=== PATIENT | female | born 1965 | race Caucasian/White ===

== ENCOUNTER 2017-08-11 19:06 | Inpatient (IN) | payer OTHER ==
[~2017-08-11] VITALS: Ht 182.9 cm; Wt 68.0 kg
[~2017-08-11 19:06] MED LIST: ASPI-757 PO; CALC600T63 PO; CHOL100058 PO; IBUP-56 PO; OMEG-96 PO
--- NOTE | 2017-08-11 19:08 | ER Report ---
History and Physical Time Seen By MD: 19:07 HPI/ROS CHIEF COMPLAINT: Slip and fall on ice HISTORY OF PRESENT ILLNESS: 51-year-old female brought in by EMS after slipping and falling on the ice. She landed on her right hip. He is complaining of severe 10/10 pain in her hip. She also did strike her head. She's comparing of head and neck pain. She notes that she passed out from the severe pain that she had when she fell. Patient was brought in by EMS and a pelvic binder and cervical spine precautions. On a spinal board. She was immediately removed from the spinal board. She was undressed. Aviva and 2nd degree surveys were performed. Her mental status is normal. Her primary concern is the right hip. REVIEW OF SYSTEMS: Respiratory: No cough, no dyspnea. Cardiovascular: No chest pain, no palpitations. Gastrointestinal: No vomiting, no abdominal pain. Musculoskeletal: As above Allergies: Coded Allergies: levofloxacin (Verified Allergy, Mild, HEART PALPATATIONS, 12/18/14) Penicillins (Unverified Allergy, Unknown, 12/18/14) childhood nitrofurantoin (Unverified Allergy, Unknown, 12/18/14) Sulfa (Sulfonamide Antibiotics) (Unverified Adverse Reaction, Intermediate , 12/18/14) feels like bugs crawling on skin cephalexin (Unverified Adverse Reaction, Unknown, 12/18/14) palpitations Home Meds Reported Medications Aspirin (ASPIRIN) 325 Mg Tablet, 2 TAB PO Q4-6H Y for PAIN, TAB 10/29/14 Ibuprofen (IBUPROFEN) 200 Mg Tablet, 2 TAB PO Q6H Y for PAIN 10/29/14 Discontinued Reported Medications Cholecalciferol (Vitamin D3) (VITAMIN D) Unknown Strength Capsule, PO, CAPSULE 10/29/14 Calcium Carbonate (CALCIUM) Unknown Strength Tablet, PO 10/29/14 Past Medical/Surgical History Past Medical History Cardiovascular: Reports hx of: other CV history (has AV node re-entry syndrome - ) Gastrointestinal: Reports hx of: GERD (with fosamax and boniva) Genitourinary: Reports hx of: urinary tract infection Musculoskeletal: Reports hx of: osteoarthritis osteopenia Past Surgical History HEENT: Reports hx of: tonsillectomy (1967) Integumentary: Reports hx of: benign lesion removal Reviewed Nurses Notes: Yes Old Medical Records Reviewed: Yes Smoking Status: Never Smoker Constitutional Vital Sign - Last 24 Hours 08/11/17 08/11/17 08/11/17 08/11/17 19:18 19:21 19:36 19:51 Pulse 59 53 55 Resp 14 20 11 B/P (MAP) 113/77 (89) Pulse Ox 97 97 96 08/11/17 08/11/17 08/11/17 08/11/17 19:53 19:54 20:06 20:21 Pulse 65 ? Resp 16 B/P (MAP) 113/77 128/73 (91) Pulse Ox 95 O2 Delivery Room Air 08/11/17 20:22 B/P (MAP) 131/78 (95) Physical Exam General Appearance: The patient is alert, has no immediate need for airway protection and no current signs of toxicity. Palpation of the head and neck reveal no tenderness or trauma HEENT: Pupils equal and round no injection. Oropharynx without dental trauma Respiratory: Chest is non tender, lungs are clear to auscultation. No chest wall tenderness Cardiac: regular rate and rhythm Gastrointestinal: Abdomen is soft and non tender, no masses, bowel sounds normal. Musculoskeletal: Neck: Neck is supple and non tender. Extremities have full range of motion and are non tender. There is tenderness over the right trochanteric area. Skin: No rashes or lesions. DIFFERENTIAL DIAGNOSIS: After history and physical exam differential diagnosis was considered for fall in the elderly including but not limited to intracranial injury, long bone and pelvic bone fracture, spinal injury, and intrathoracic injury. Medical Decision Making Data Points Result Diagram: 08/11/17204908/11/172049 EKG/Imaging EKG Interpretation 12 lead EK Rhythm: Sinus bradycardia Snelling: normal QRS: normal ST segments: normal, no evidence of ischemia or dysrhythmia Imaging X-ray: Single view portable chest x-ray was obtained. I viewed the images myself on the PACS system. My interpretation of the images is: No infiltrate, no effusion, normal mediastinum. The radiologist interpretation had no clinically significant variation from this interpretation. X-ray: Right hip 3 views was obtained. I viewed the images myself on the PACS system. My interpretation of the images is: Surgical neck fracture, pelvis intact, pelvic ring is intact. The radiologist interpretation had no clinically significant variation from this interpretation. Results: CT scan of the head and cervical spine without contrast was obtained. The results of the study are no acute traumatic findings are noted. See reports. The study was read by the radiologist. I viewed the images myself on the PACS system. ED Course/Re-evaluation Clinical Indication for ER IV: Hydration, IV Access ED Course Patient was admitted to an examination room. H&P was done. The differential diagnoses was considered. On the knuckle examination. Patient was brought in by EMS after a slip and fall on ice. She's complaining of severe right hip pain. Right lower extremity is noted to be neurovascularly intact. Patient also had vasovagal syncope secondary to the severe pain in her right hip. Patient notes mild head impact and neck pain. Patient's medicated with Zofran 4 mg and fentanyl 50 g IV. She is undressed and removed from the spinal board. Diagnostic x-rays are performed. A right hip x-ray shows obvious surgical neck fracture. The pelvis ring is intact. Chest x-ray shows clear lung caraballo, CT of the head and cervical spine were performed which were unremarkable for significant traumatic injury. 08/11/2017 8:08:28 pm case discussed with who accepts the patient for admission to orthopedics. He requested that the hospitalist, Dr. Dhara Watkins contacted. Consult for preop evaluation. Decision to Disposition Date: Aug 11, 2017 Decision to Disposition Time: 20:01 Depart Departure Latest Vital Signs Vital Signs Date Time Temp Pulse Resp B/P (MAP) Pulse Ox O2 Delivery O2 Flow Rate FiO2 08/11/17 20:22 131/78 (95) 08/11/17 20:21 ??? 08/11/17 19:53 16 95 Room Air Impression: Primary Impression: Fall from ground level Additional Impressions: Closed right hip fracture Syncope, vasovagal Condition: Improved Disposition: Admitted from ER Referrals: HARRY LIMON APRN [employer] (PCP) Problem Qualifiers Additional Impressions: Closed right hip fracture Encounter type: initial encounter Qualified Codes: S72.001A - Fracture of unspecified part of neck of right femur, initial encounter for closed fracture CHARY MONTIEL DO Aug 11, 2017 19:08
[2017-08-11] MEDS ORDERED: ONDANSETRON 4 MG/2 ML VIAL IVP ONE (19:10)
[2017-08-11] MEDS ORDERED: NS(*) 0.9% 1000 ML BAG 1,000 ML IV ONE (19:10)
[2017-08-11] MEDS ORDERED: fentaNYL CITR 100 MCG/2 ML AMP IVP ONE (19:10)
[2017-08-11] MEDS ORDERED: HYDROmorphone(ER ONLY) 1 MG/ML IVP ONE ×2 (19:45→20:45)
--- NOTE | 2017-08-11 20:00 | RADIOLOGY IMAGING REPORT ---
FACILITY: [facility] PATIENT NAME: Darlene Miller : 1965 MR: [id number] V: [id number] EXAM DATE: ORDERING PHYSICIAN: CHARY MONTIEL TECHNOLOGIST: Location: [facility] Patient: Darlene Miller : 1965 Visit/Account:[id number] Date of Sevice: 08/11/2017 Single view of the chest Indication: Fall on ice. Comparison: None available Findings: Heart size within normal limits. Lungs are clear. No pneumothorax or pleural effusion. No acute bony finding IMPRESSION: 1. No acute cardiopulmonary process. Report Dictated By: Arsalan Fischer MD at 08/11/2017 7:56 PM Report E-Signed By: Arsalan Fischer MD at 08/11/2017 7:57 PM WSN:[id number]
--- NOTE | 2017-08-11 20:01 | RADIOLOGY IMAGING REPORT ---
FACILITY: [facility] PATIENT NAME: Darlene Miller : 1965 MR: [id number] V: [id number] EXAM DATE: ORDERING PHYSICIAN: CHARY MONTIEL TECHNOLOGIST: Location: [facility] [place] Patient: Darlene Miller : 1965 Visit/Account:[id number] Date of Sevice: 08/11/2017 HIP RIGHT Indication: Fall on ice Comparison: None available Findings: There is a mildly displaced subcapital right femoral neck fracture. The remainder the neck is superio rly migrated with varus angulation. IMPRESSION: 1. Displaced subcapital right femoral neck fracture Report Dictated By: Arsalan Fischer MD at 08/11/2017 7:57 PM Report E-Signed By: Arsalan Fischer MD at 08/11/2017 7:58 PM WSN:[id number]
--- NOTE | 2017-08-11 20:44 | RADIOLOGY IMAGING REPORT ---
FACILITY: [facility] [place] PATIENT NAME: Darlene Miller : 1965 MR: [id number] V: [id number] EXAM DATE: ORDERING PHYSICIAN: CHARY MONTIEL TECHNOLOGIST: Location: [facility] Patient: Darlene Miller : 1965 Visit/Account:[id number] Date of Sevice: 08/11/2017 EXAMINATION: CT head without IV contrast HISTORY: Fall. TECHNIQUE: Axial CT images of the head were obtained from the vertex to the skull base without IV c ontrast, with coronal and sagittal 2D reconstructed images. One of the following dose optimization techniques was utilized in the performance of this exam: Autom ated exposure control; adjustment of the mA and/or kV according to the patient's size; or use of an i terative reconstruction technique. Specific details can be referenced in the facility's radiology C T exam operational policy. COMPARISON: None. FINDINGS: The intracranial contents are unremarkable. No CT evidence of intracranial hemorrhage or mass effect . No midline shift or extra-axial fluid collections. Abrams-white differentiation is maintained. The calvarium is intact. The visualized paranasal sinuses and mastoid air cells are unopacified. IMPRESSION: Unremarkable noncontrast head CT. Report Dictated By: Sebastian Abel MD at 08/11/2017 8:38 PM Report E-Signed By: Sebastian Abel MD at 08/11/2017 8:40 PM WSN:[id number]
--- NOTE | 2017-08-11 20:48 | RADIOLOGY IMAGING REPORT ---
FACILITY: [facility] PATIENT NAME: Darlene Miller : 1965 MR: [id number] V: [id number] EXAM DATE: ORDERING PHYSICIAN: CHARY MONTIEL TECHNOLOGIST: Location: [facility] Patient: Darlene Miller : 1965 Visit/Account:[id number] Date of Sevice: 08/11/2017 EXAMINATION: CT cervical spine without IV contrast HISTORY: Fall. TECHNIQUE: Thin axial CT images of the cervical spine were obtained without IV contrast, with sagit sam and coronal 2D reconstructed images. One of the following dose optimization techniques was utilized in the performance of this exam: Autom ated exposure control; adjustment of the mA and/or kV according to the patient's size; or use of an i terative reconstruction technique. Specific details can be referenced in the facility's radiology C T exam operational policy. COMPARISON: None. FINDINGS: There is loss of the normal cervical lordosis with mild cervical kyphosis centered at C4-C5. Otherwis e normal alignment along the cervical spine. No evidence of acute fracture or subluxation. Vertebral body height is maintained. Mild spondylotic changes in the cervical spine. There is mild disc space narrowing at C5-C6, with end plate osteophyte formation. There is mild right foraminal narrowing at C5-C6 related to uncovertebral spurring. Posterior elements are intact, with normal alignment along the cervical facet joints. The dens is intact. Normal alignment at the craniocervical junction. IMPRESSION: 1. Loss of the cervical lordosis may be positional or related to muscle spasm. 2. No other acute osseous findings along the cervical spine. No evidence of fracture or subluxation. 2. Mild chronic degenerative changes, greatest at C5-C6. Report Dictated By: Sebastian Abel MD at 08/11/2017 8:40 PM Report E-Signed By: Sebastian Abel MD at 08/11/2017 8:43 PM WSN:[id number]
[2017-08-11 20:58] LABS: PLATELET COUNT, AUTOMATED 169 K/uL (150-450)
[2017-08-11 21:08] LABS: INR 1.08
[2017-08-11] MEDS ORDERED: ONDANSETRON 4 MG TAB PO PRN (22:20)
[2017-08-11] MEDS ORDERED: NS(*) 0.9% 1000 ML BAG 1,000 ML IV PRN (22:20)
[2017-08-11] MEDS ORDERED: HYDROmorphone PCA 6 MG/30 ML IV PRN (22:20)
[2017-08-11] MEDS ORDERED: NS(*) 0.9% 1000 ML BAG 1,000 ML ONE (22:41)
--- NOTE | 2017-08-11 22:52 | EKG ---
FACILITY: [facility] [place] PATIENT NAME: RELL MONTEZ : [id number] MR: [id number] V: [id number] EXAM DATE: ORDERING PHYSICIAN: CHARY MONTIEL TECHNOLOGIST: FIGUEROA Test Reason : PRE-OP Blood Pressure : / mmHG Vent. Rate : 055 BPM Atrial Rate : 055 BPM P-R Int : 162 ms QRS Dur : 092 ms QT Int : 480 ms P-R-T Axes : 079 077 072 degrees QTc Int : 459 ms Sinus bradycardia Otherwise normal ECG When compared with ECG of 12-AUG-2016 14:10, No significant change was found Confirmed by KURTIS BROWN ([id number]) on 08/12/2017 6:12:49 AM Referred By: Confirmed By:KURTIS BROWN
[2017-08-11 23:29] VITALS: BP 113/74
[2017-08-12] VITALS (14 sets, daily range): BP systolic 97–122; BP diastolic 58–79; Ht 182.9 cm; Wt 68.0 kg
--- NOTE | 2017-08-12 00:39 | Hospitalist Consultation ---
History of Present Illness Requesting Physician Dr. Burns Reason for Consult Clear for surgery. Chief Complaint Fall, right hip pain. History of Present Illness The patient is a 51 year old female with PMH significant for AV soham reentry tachycardia who presents with right hip pain after a fall on the ice earlier today outside of the movie theater. The patient and her were going in to the theater when she slipped and fell. She was transported to [facility] ER by EMS. In the ER, x-ray showed a displaced subcapital right femoral neck fracture. The patient is generally healthy and takes no chronic medications. She does take aspirin and ibuprofen prn, but has not had a need to take either of these recently. She has a history of SVT and was diagnosed with AV soham re-entry tachycardia. An attempt at ablation was unsuccessful. She does not take medications for this. She uses vagal maneuvers and/or rests which helps. History Problems: (1) AV soham re-entry tachycardia Status: Chronic (2) Hx of wisdom tooth extraction Status: Resolved (3) Hx of tonsillectomy Status: Resolved (4) Lumbar stenosis Status: Chronic (5) Osteopenia Onset Date: 10/29/2014 Status: Chronic (6) History of asthma Status: Chronic (7) Hx: UTI (urinary tract infection) Status: Chronic Home Meds Reported Medications Aspirin (ASPIRIN) 325 Mg Tablet, 2 TAB PO Q4-6H Y for PAIN, TAB 10/29/14 Ibuprofen (IBUPROFEN) 200 Mg Tablet, 2 TAB PO Q6H Y for PAIN 10/29/14 Discontinued Reported Medications Cholecalciferol (Vitamin D3) (VITAMIN D) Unknown Strength Capsule, PO, CAPSULE 10/29/14 Calcium Carbonate (CALCIUM) Unknown Strength Tablet, PO 10/29/14 Allergies: Coded Allergies: levofloxacin (Verified Allergy, Mild, HEART PALPATATIONS, 12/18/14) Penicillins (Unverified Allergy, Unknown, 12/18/14) childhood nitrofurantoin (Unverified Allergy, Unknown, 12/18/14) Sulfa (Sulfonamide Antibiotics) (Unverified Adverse Reaction, Intermediate , 12/18/14) feels like bugs crawling on skin cephalexin (Unverified Adverse Reaction, Unknown, 12/18/14) palpitations Patient History: FH: COPD (chronic obstructive pulmonary disease) MOTHER (Complications of hip surgery), , Age:86 FH: HTN (hypertension) FATHER, , Age:94 FH: breast cancer MOTHER (Complications of hip surgery), , Age:86 FH: diabetes mellitus MOTHER (Complications of hip surgery), , Age:86 FH: heart disease FATHER, , Age:94 FH: prostate cancer FATHER, , Age:94 No pertinent family history BROTHER OR SISTER Other Social/Family Hx The patient is . She has 3 children. Hx Smoking: No Smoking Status: Never Smoker Caffeine Intake: Coffee, Tea Caffeine/Cups Per Day: 3-4 CPD Hx Alcohol Use: Yes Alcohol Use: Occassional Social Drug Use: Never History of IV Drug Use: No Review of Systems All Systems Reviewed/Normal: Yes, Except as Noted Genitourinary: No Dysuria Musculoskeletal: Pain (Current pain, right hip.) Exam Vital Signs Vital Signs Date Time Temp Pulse Resp B/P (MAP) Pulse Ox O2 Delivery O2 Flow Rate FiO2 08/11/17 23:29 97.9 16 113/74 (87) 97 Nasal Cannula 08/11/17 22:30 2.0 08/11/17 21:00 60 General Appearance: Alert, Awake, No Acute Distress, Afebrile Neuro: No Gross deficits Eyes: PERRLA Cardiovascular: Regular Rate and Rhythm Respiratory: Clear to Auscultation GI: Abd Soft and Non-Tender Extremities: Warm, Perfused Integumentary: Other (Abrasion anterior left lower sharma.) Psych: Appropriate Mood & Affect Medical Decision Making Data Points Result Diagram: 08/11/17204908/11/172049 Item Value Date Time Calcium Level 8.3 mg/dl L 08/11/172049 Total Bilirubin 0.3 mg/dl 08/11/172049 Aspartate Amino Transf (AST/SGOT) 30 U/L 08/11/172049 Alanine Aminotransferase (ALT/SGPT) 37 U/L 08/11/172049 Alkaline Phosphatase 73 U/L 08/11/172049 Total Protein 6.2 gm/dl L 08/11/172049 Albumin 3.6 g/dl 08/11/172049 Urine Color Yellow 08/11/172033 Urine Clarity Cloudy 08/11/172033 Urine pH 7.0 pH 08/11/172033 Urine Specific [place] 1.018 08/11/172033 Urine Protein Negative mg/dL 08/11/172033 Urine Glucose (UA) Negative mg/dL 08/11/172033 Urine Ketones Negative mg/dL 08/11/172033 Urine Blood Negative 08/11/172033 Urine Nitrite Positive H 08/11/172033 Urine Bilirubin Negative 08/11/172033 Urine Urobilinogen Negative mg/dL 08/11/172033 Urine Leukocyte Esterase Trace H 08/11/172033 Urine RBC 2 /HPF 08/11/172033 Urine WBC 4 /HPF 08/11/172033 Urine Squamous Epithelial Cells None /LPF 08/11/172033 Urine Amorphous Crystals Few /HPF 08/11/172033 Urine Bacteria Many /HPF H 08/11/172033 Urine Mucus None /HPF 08/11/172033 Prothrombin Time 14.0 seconds 08/11/172049 Prothromb Time International Ratio 1.08 08/11/172049 Activated Partial Thromboplast Time 28 seconds 08/11/172049 Urine culture pending. EKG / Imaging EKG Interpretation FACILITY: [facility] [place] PATIENT NAME: RELL MILLER : [id number] MR: [id number] V: [id number] EXAM DATE: ORDERING PHYSICIAN: CHARY MONTIEL TECHNOLOGIST: DMW Test Reason : PRE-OP Blood Pressure : / mmHG Vent. Rate : 055 BPM Atrial Rate : 055 BPM P-R Int : 162 ms QRS Dur : 092 ms QT Int : 480 ms P-R-T Axes : 079 077 072 degrees QTc Int : 459 ms Sinus bradycardia Otherwise normal ECG When compared with ECG of 12-AUG-2016 14:10, No significant change was found Referred By: Confirmed By: 21 T: / Imaging FACILITY: [facility] [place] PATIENT NAME: Rell Miller : 1965 MR: [id number] V: [id number] EXAM DATE: [id number] ORDERING PHYSICIAN: CHARY MONTIEL [place]CHNOLOG[place]: [place] [facility] [place]ell [place] : 1965 Visit/Account:[id number] Date of Sevice: 08/11/2017 HIP RIGHT Indication: Fall on ice Comparison: None available Findings: There is a mildly displaced subcapital right femoral neck fracture. The remainder the neck is superiorly migrated with varus angulation. IMPRESSION: 1. Displaced subcapital right femoral neck fracture Report Dictated By: Arsalan Fischer MD at 08/11/2017 7:57 PM Report E-Signed By: Arsalan Fischer MD at 08/11/2017 7:58 PM WSN:[id number] FACILITY: [facility] [place] PATIENT NAME: Rell Miller : 1965 MR: [id number] V: [id number] EXAM DATE: ORDERING PHYSICIAN: CHARY MONTIEL TECHNOLOGIST: [place] [facility] [place] Rell [place] : 1965 Visit/Account:[id number] Date of Sevice: 08/11/2017 EXAMINATION: CT head without IV contrast HISTORY: Fall. TECHNIQUE: Axial CT images of the head were obtained from the vertex to the skull base without IV contrast, with coronal and sagittal 2D reconstructed images. One of the following dose optimization techniques was utilized in the performance of this exam: Automated exposure control; adjustment of the mA and/ or kV according to the patient's size; or use of an iterative reconstruction technique. Specific details can be referenced in the facility's radiology CT exam operational policy. COMPARISON: None. FINDINGS: The intracranial contents are unremarkable. No CT evidence of intracranial hemorrhage or mass effect. No midline shift or extra-axial fluid collections. Abrams-white differentiation is maintained. The calvarium is intact. The visualized paranasal sinuses and mastoid air cells are unopacified. IMPRESSION: Unremarkable noncontrast head CT. Report Dictated By: Sebastian Abel MD at 08/11/2017 8:38 PM Report E-Signed By: Sebastian Abel MD at 08/11/2017 8:40 PM WSN:[id number] FAC[place]: [facility] [place] PATIENT NAME: Rell Miller : 1965 MR: [id number] V: [id number] EXAM DATE: [id number] ORDERING PHYSICIAN: CHARY MONTIEL [place]CHNOLOGIST: [place] [facility] [place] Rell [place] : 1965 Visit/Account:[id number] Date of Sevice: 08/11/2017 Single view of the chest Indication: Fall on ice. Comparison: None available Findings: Heart size within normal limits. Lungs are clear. No pneumothorax or pleural effusion. No acute bony finding IMPRESSION: 1. No acute cardiopulmonary process. Report Dictated By: Arsalan Fischer MD at 08/11/2017 7:56 PM Report E-Signed By: Arsalan Fischer MD at 08/11/2017 7:57 PM WSN:[id number] FACILITY: [facility] [place] PATIENT NAME: Rell Miller : 1965 MR: [id number] V: [id number] EXAM DATE: [id number] ORDERING PHYSICIAN: CHARY MONTIEL [place]CHNOLOG[place]: [place] [facility] [place]ell [place] : 1965 Visit/Account:[id number] Date of Sevice: 08/11/2017 EXAMINATION: CT cervical spine without IV contrast HISTORY: Fall. TECHNIQUE: Thin axial CT images of the cervical spine were obtained without IV contrast, with sagittal and coronal 2D reconstructed images. One of the following dose optimization techniques was utilized in the performance of this exam: Automated exposure control; adjustment of the mA and/ or kV according to the patient's size; or use of an iterative reconstruction technique. Specific details can be referenced in the facility's radiology CT exam operational policy. COMPARISON: None. FINDINGS: There is loss of the normal cervical lordosis with mild cervical kyphosis centered at C4-C5. Otherwise normal alignment along the cervical spine. No evidence of acute fracture or subluxation. Vertebral body height is maintained. Mild spondylotic changes in the cervical spine. There is mild disc space narrowing at C5-C6, with endplate osteophyte formation. There is mild right foraminal narrowing at C5-C6 related to uncovertebral spurring. Posterior elements are intact, with normal alignment along the cervical facet joints. The dens is intact. Normal alignment at the craniocervical junction. IMPRESSION: 1. Loss of the cervical lordosis may be positional or related to muscle spasm. 2. No other acute osseous findings along the cervical spine. No evidence of fracture or subluxation. 2. Mild chronic degenerative changes, greatest at C5-C6. Report Dictated By: Sebastian Abel MD at 08/11/2017 8:40 PM Report E-Signed By: Sebastian Abel MD at 08/11/2017 8:43 PM WSN:[id number] Pre-Admit Course ED Medications Dilaudid, Zofran, Fentanyl, NS Medical Record Review: Yes Assessment and Plan Problems: (1) Closed right hip fracture Status: Acute Assessment & Plan: Dr. Burns has seen the patient and plans to take her to surgery in the am. She is cleared to proceed with surgery. She has been started on Cipro for mild pyuria while awaiting urine culture. 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 She uses vagal maneuvers and rest with good result. (3) Pyuria Status: Acute Assessment & Plan: UA performed on cath specimen shows 4 WBCs with positive leukocyte esterase and positive nitrites. The patient has a history of frequent UTIs in the past. Will start Cipro until culture available. (4) Osteopenia Onset Date: 10/29/2014 Status: Chronic Assessment & Plan: The patient has taken Boniva and Fosamax in the past. Time Spent on Plan of Care: < 30 min Venous Thromboembolism VTE Risk Physician Assess for VTE Risk: Yes Patient's VTE Risk: Low VTE Diagnostic Test 2 Days Prior to Admit: No Antithrombotics Is Pt On Any Antithrombotics?: No Prophylaxis Tx Contraindicated Pharmacological Contraindicati: Surgical Contraindication Exam Sepsis Risk: No Definite Risk Problem Qualifiers (1) Closed right hip fracture: Encounter type: initial encounter Qualified Codes: S72.001A - Fracture of unspecified part of neck of right femur, initial encounter for closed fracture (2) Osteopenia: Osteopenia location: other site Qualified Codes: M85.88 - Other specified disorders of bone density and structure, other site KURTIS SCHROEDER MD Aug 12, 2017 00:39
[2017-08-12] MEDS ORDERED: DIAZEPAM 10 MG/2 ML SYR IVP PRN (01:15)
[2017-08-12 05:56] LABS: PLATELET COUNT, AUTOMATED 166 K/uL (150-450)
[2017-08-12] MEDS ORDERED: DEXAMETHASONE SOD 4 MG/ML VIAL ONE (07:14)
[2017-08-12] MEDS ORDERED: PROPOFOL EMUL(*) 10MG/ML 20 ML 20 ML ONE (07:15)
[2017-08-12] MEDS ORDERED: METOCLOPRAMIDE 10 MG/2 ML SDV ONE (07:15)
[2017-08-12] MEDS ORDERED: fentaNYL CITR 100 MCG/2 ML AMP ONE ×4 (07:15→10:06)
[2017-08-12] MEDS ORDERED: ONDANSETRON 4 MG/2 ML VIAL ONE (07:15)
[2017-08-12] MEDS ORDERED: LIDOCAINE MPF 1% 5 ML VIAL ONE (07:15)
[2017-08-12] MEDS ORDERED: FAMOTIDINE(*) 20MG/50ML PREMIX 50 ML IVPB ONE ×2 (07:20→07:25)
[2017-08-12] MEDS ORDERED: LEVOFLOXACIN/D5W 250 MG/50 ML 50 ML IVPB ONE (07:25)
[2017-08-12] MEDS ORDERED: NORMOSOL R SOLN(*) 1000 ML BAG 1,000 ML IV ONE (07:27)
[2017-08-12] MEDS ORDERED: CIPROFLOXACIN 500 MG TAB PO SCH (07:30)
[2017-08-12] MEDS ORDERED: ROPIVACAINE 0.5% 20 ML VIAL ONE (08:01)
[2017-08-12] MEDS ORDERED: ROPIVACAINE 0.2% 20 ML VIAL ONE (08:01)
[2017-08-12] MEDS ORDERED: MIDAZOLAM 2 MG/2 ML VIAL ONE (08:01)
--- NOTE | 2017-08-12 08:22 | Hospitalist Progress Note ---
Subjective Progress Notes Subjective The patient had several hours of SVT last evening with rate about 120. She was asymptomatic with this. She converted to sinus rhythm at about 0430 this am. Physical Exam Vital Signs Date Time Temp Pulse Resp B/P (MAP) Pulse Ox O2 Delivery O2 Flow Rate FiO2 08/12/17 04:28 84 08/12/17 04:18 97.7 20 109/74 (86) 96 Nasal Cannula 08/11/17 22:30 2.0 General Appearance: Alert, Awake, No Acute Distress, Afebrile Neuro: No Gross deficits Cardiovascular: Regular Rate and Rhythm Respiratory: Clear to Auscultation GI: Soft and Non-Tender Extremities: Warm, Perfused Psych: Appropriate Mood & Affect Result Diagram: 08/12/1753208/11/172049 Assessment and Plan Problems: (1) Closed right hip fracture Status: Acute Assessment & Plan: Dr. Burns has seen the patient and plans to take her to surgery this am. She is cleared to proceed with surgery. She has been started on Levaquin for mild pyuria while awaiting cultures. She does not have a true allergy to Levaquin, it caused palpitations which the patient now believes was unrelated and due to her AV soham reentry tachycardia. 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 She uses vagal maneuvers and rest with good result. She had an episode last evening which has now resolved. HR was about 120 with this. (3) Pyuria Status: Acute Assessment & Plan: UA performed on cath specimen shows 4 WBCs with positive leukocyte esterase and positive nitrites. The patient has a history of frequent UTIs in the past. Levaquin ordered this am as the patient is NPO. (4) Osteopenia Onset Date: 10/29/2014 Status: Chronic Assessment & Plan: The patient has taken Boniva and Fosamax in the past. Time Spent on Plan of Care: < 30 min Exam Sepsis Risk: No Definite Risk Problem Qualifiers (1) Closed right hip fracture: Encounter type: initial encounter Qualified Codes: S72.001A - Fracture of unspecified part of neck of right femur, initial encounter for closed fracture (2) Osteopenia: Osteopenia location: other site Qualified Codes: M85.88 - Other specified disorders of bone density and structure, other site KURTIS SCHROEDER MD Aug 12, 2017 08:22
[2017-08-12] MEDS ORDERED: PHENYLEPHRINE/NS/PF 0.4MG/10ML ONE (08:33)
[2017-08-12] MEDS ORDERED: KETOROLAC 30 MG/ML VIAL IVP PRN (10:10)
[2017-08-12] MEDS ORDERED: ZOLPIDEM TARTRATE 5 MG TAB PO PRN (10:10)
[2017-08-12] MEDS ORDERED: PROMETHAZINE 25 MG/ML 1 ML AMP IVP PRN (10:10)
[2017-08-12] MEDS ORDERED: PROMETHAZINE HCL(*) 25 MG SUPP PR PRN (10:10)
[2017-08-12] MEDS ORDERED: LR 1000 ML BAG 1000 ML IV PRN (10:10)
[2017-08-12] MEDS ORDERED: MAGNESIUM HYDROXIDE* 30ML UDCP PO PRN (10:10)
[2017-08-12] MEDS ORDERED: FLUSH 10 ML SYR IVP PRN (10:10)
[2017-08-12] MEDS ORDERED: diphenhydrAMINE 25 MG CAP PO PRN (10:10)
[2017-08-12] MEDS ORDERED: diphenhydrAMINE 50 MG/ML VIAL IVP PRN (10:10)
[2017-08-12] MEDS ORDERED: ONDANSETRON 4 MG/2 ML VIAL IVP PRN (10:10)
[2017-08-12] MEDS ORDERED: HYDROmorphone HCL 2 MG/ML SDV IVP PRN (10:10)
[2017-08-12] MEDS ORDERED: BISACODYL 10 MG SUPP PR PRN (10:10)
[2017-08-12] MEDS ORDERED: BENZOCAINE/MENTHOL 1 EACH LOZG PO PRN (10:10)
[2017-08-12] MEDS ORDERED: MAGNESIUM CITRATE 300 ML BTL PO PRN (10:10)
--- NOTE | 2017-08-12 11:04 | RADIOLOGY IMAGING REPORT ---
[place] [facility] [place] NAME: Darlene Miller : 1965 MR: [id number] V: [id number] EXAM DATE: ORDERING PHYSICIAN: NIXON BRAXTON TECHNOLOGIST: Location: [facility] Patient: Darlene Miller : 1965 Visit/Account:[id number] Date of Sevice: 08/12/2017 C-ARM FLUORO 1 HR Indication: FRACTURED HIP / CANNULATED SCREW Comparison: Right hip radiograph 08/11/2017 Findings: Intraoperative images are obtained, with cannulated screws identified through the fracture line. Alignment is maintained. IMPRESSION: Intraoperative images from open reduction internal fixation right femoral neck fracture. Radiation dose: DAP 0.03059 mGym2 Report Dictated By: Jatin Conner at 08/12/2017 10:59 AM Report E-Signed By: Jatin Conner at 08/12/2017 11:01 AM WSN:[id number]
--- NOTE | 2017-08-12 14:47 | OPERATIVE REPORT 1 ---
EVENT DATE: August 12, 2017 SURGEON: Keny Burns MD ANESTHESIOLOGIST: Luis F Lozano MD ANESTHESIA: General PREOPERATIVE DIAGNOSIS Right femoral neck fracture, displaced. POSTOPERATIVE DIAGNOSIS Right femoral neck fracture, displaced. PROCEDURE PERFORMED Closed reduction and percutaneous pinning of the right hip. ESTIMATED BLOOD LOSS Minimal. FLUIDS Minimal. DESCRIPTION OF OPERATION The patient was brought to the operating room and placed in a traction bed and had her right leg placed in traction. The left leg was then flexed and externally rotated and abducted. From here, we brought fluoroscopy in and were able to reduce the fracture just with some internal rotation and traction. I checked both on AP and lateral and found to have an excellent reduction. Once that was done, we then prepped and draped the lateral aspect of the right leg. I made an incision just below the greater tuberosity. The skin was incised with a 15 blade down to subcutaneous tissue. At this point, I dissected down to the extensor fascia charles that excised, and then I did a submuscular approach to the bone. Once I was able to get down to the bone, I then placed a pin under fluoroscopy, both with AP and lateral in the inferior-most portion of the neck. Once I had one pin in, I then used that with the guide to place two more pins superiorly above it, trying to get AP and posterior as much as possible with those. Once I had the pins in the appropriate place and the reduction in the appropriate place with the pins there both on AP and lateral, I then drilled all the holes and measured. I placed three 7.3 cannulated screws into the head of the femur and got great compression with all three of them, actually even closed down the fracture site, watching it on the x-ray. I pulled all the pins out. I took AP and lateral again and found to have excellent reduction and good placement of all the hardware. I closed the fascia charles using 2-0 Vicryl in a running stitch manner. I closed the subcutaneous tissues using 3-0 Monocryl and then madeleine, Adaptic, 4 x 4's, and Galindo. The patient went to recovery. No complications. ROMY
[2017-08-12] MEDS ORDERED: ceFAZolin(*) 1 GM VIAL 1 GM in NS(*) 0.9% 100 ML ADDVANT BAG 100 ML IVPB SCH (17:00)
[2017-08-12] MEDS: CLINDAMYCIN 600 MG/4 ML 600 MG in NS(*) 0.9% 100 ML BAG 100 ML IVPB SCH (17:25)
[2017-08-13] MEDS: CLINDAMYCIN 600 MG/4 ML 600 MG in NS(*) 0.9% 100 ML BAG 100 ML IVPB SCH (01:03)
[2017-08-13 05:50] VITALS: BP 95/63
[2017-08-13] MEDS ORDERED: NS(*) 0.9% 500 ML BAG 500 ML IV ONE (08:50)
[2017-08-13] MEDS ORDERED: ENOXAPARIN 40 MG/0.4ML SYR SC SCH (09:00)
[2017-08-13] MEDS: ASPIRIN 325 MG ENTERIC COATED PO SCH (09:27)
[2017-08-13 10:08] VITALS: BP 110/67
[2017-08-13] MEDS ORDERED: LEVOFLOXACIN 500 MG TAB PO SCH (10:20)
--- NOTE | 2017-08-13 10:20 | Hospitalist Progress Note ---
Subjective Progress Notes Subjective She gets light headed with sitting up and her SBP dropped 25mmHg from supine to sitting. No reported cp/sob. Physical Exam Vital Signs Date Time Temp Pulse Resp B/P (MAP) Pulse Ox O2 Delivery O2 Flow Rate FiO2 08/13/17 10:08 97.7 68 110/67 (81) 94 Nasal Cannula 0.5 08/13/17 05:50 14 Intake and Output 08/14/17 07:00 Intake Total 620 ml Balance 620 ml Intake Oral 620 ml General Appearance: Alert, Awake, No Acute Distress Result Diagram: 08/13/17 0551 08/11/172049 Assessment and Plan Problems: (1) Closed right hip fracture Status: Acute Assessment & Plan: She had a hip pinning on 08/12. She will be on ASA 325 mg a day for blood clot prevention. She has been started on Levaquin for mild pyuria while awaiting cultures. She does not have a true allergy to Levaquin, it caused palpitations which the patient now believes was unrelated and due to her AV soham reentry tachycardia. (2) Orthostatic hypotension Status: Acute Assessment & Plan: Secondary to narcotics, and recent anesthesia. No evidence of bleeding. Good UOP. Will give a 500cc fluid boluse. Will check CBC/BMP in the morning. (3) AV soham re-entry tachycardia Status: Chronic Assessment & Plan: The patient is not on chronic treatment. She uses vagal maneuvers and rest with good result. She had an episode the evening of the which has now resolved. HR was about 120 with this. (4) Pyuria Status: Acute Assessment & Plan: UA performed on cath specimen shows 4 WBCs with positive leukocyte esterase and positive nitrites. The patient has a history of frequent UTIs in the past. Levaquin ordered. Culture growing a GNR. (5) Osteopenia Onset Date: 10/29/2014 Status: Chronic Assessment & Plan: The patient has taken Boniva and Fosamax in the past. Exam Sepsis Risk: No Definite Risk Problem Qualifiers (1) Closed right hip fracture: Encounter type: initial encounter Qualified Codes: S72.001A - Fracture of unspecified part of neck of right femur, initial encounter for closed fracture (2) Osteopenia: Osteopenia location: other site Qualified Codes: M85.88 - Other specified disorders of bone density and structure, other site LYNN JACKSON MD Aug 13, 2017 10:20
[2017-08-13 11:32] VITALS: BP 103/63
[2017-08-13 19:12] VITALS: BP 99/64
[2017-08-13 23:07] VITALS: BP 86/71
[2017-08-14 03:28] VITALS: BP 109/64
[2017-08-14 05:53] LABS: PLATELET COUNT, AUTOMATED 134 K/uL (150-450)
[2017-08-14] MEDS ORDERED: ASPI-764 PO (06:20)
--- NOTE | 2017-08-14 06:48 | Hospitalist Progress Note ---
Subjective Progress Notes Subjective No cp/sob. The patient was able to work with therapy after the 500cc bolus yesterday. No problems since. Physical Exam Vital Signs Date Time Temp Pulse Resp B/P (MAP) Pulse Ox O2 Delivery O2 Flow Rate FiO2 08/14/17 03:28 97.9 86 16 109/64 (79) 94 Nasal Cannula 0.5 General Appearance: Alert, Awake, No Acute Distress Result Diagram: 08/14/1752708/14/17527 Assessment and Plan Problems: (1) Closed right hip fracture Status: Acute Assessment & Plan: She had a hip pinning on 08/12. She will be on ASA 325 mg a day for blood clot prevention. She has been started on Levaquin for mild pyuria while awaiting cultures. She does not have a true allergy to Levaquin, it caused palpitations which the patient now believes was unrelated and due to her AV soham reentry tachycardia. (2) Orthostatic hypotension Status: Acute Assessment & Plan: Secondary to narcotics, and recent anesthesia. No evidence of bleeding. Good UOP. BMP/CBC wnl. Resolved after 500cc bolus. (3) AV soham re-entry tachycardia Status: Chronic Assessment & Plan: The patient is not on chronic treatment. She uses vagal maneuvers and rest with good result. She had an episode the evening of the which has now resolved. HR was about 120 with this. (4) Pyuria Status: Acute Assessment & Plan: UA performed on cath specimen shows 4 WBCs with positive leukocyte esterase and positive nitrites. The patient has a history of frequent UTIs in the past. Levaquin ordered. Culture growing a GNR. Today, will be her 3rd dose of Levofloxacin, so will be done with antibiotics if it is sensitive. (5) Osteopenia Onset Date: 10/29/2014 Status: Chronic Assessment & Plan: The patient has taken Boniva and Fosamax in the past. She is to follow up with her PCP about other options. Copies to: HARRY LIMON APRN [employer]-C Exam Sepsis Risk: No Definite Risk Problem Qualifiers (1) Closed right hip fracture: Encounter type: initial encounter Qualified Codes: S72.001A - Fracture of unspecified part of neck of right femur, initial encounter for closed fracture (2) Osteopenia: Osteopenia location: other site Qualified Codes: M85.88 - Other specified disorders of bone density and structure, other site LYNN JACKSON MD Aug 14, 2017 06:48
[2017-08-14 07:46] VITALS: BP 108/61
--- NOTE | 2017-08-14 08:51 | Miscellaneous Provider Note ---
Miscellaneous Provider Note Note Urine culture is growing E. coli which is resistant to quinolones. It is sensitive to cephalosporins. The patient lists an adverse reaction to Keflex ( palpitations), but feels this may be coincidental to an episode of PSVT that has since been diagnosed. She did not have any rash or respiratory symptoms. We will remove the adverse reaction listing of Keflex. Steve castillo has persistent right wrist pain that has hindered her rehab. Will check x-rays today. LIAM SCHROEDER MD Aug 14, 2017 08:51
[2017-08-14] MEDS ORDERED: CEPHALEXIN MONO 500 MG CAP PO SCH (09:00)
[2017-08-14] MEDS: ASPIRIN 325 MG ENTERIC COATED PO SCH (09:17)
--- NOTE | 2017-08-14 09:36 | RADIOLOGY IMAGING REPORT ---
FACILITY: [facility] PATIENT NAME: Darlene Miller : 1965 MR: [id number] V: [id number] EXAM DATE: ORDERING PHYSICIAN: LIAM SCHROEDER TECHNOLOGIST: Location: [facility] Patient: Darlene Miller : 1965 Visit/Account:[id number] Date of Sevice: 08/14/2017 Exam type: WRIST RIGHT MIN 3 VIEW History: fall/wrist pain Comparison: None. Findings: There are mild degenerative changes at the radiocarpal joint. No definite fracture dislocation is se en however a navicular view was not performed and if a navicular fracture is of clinical concern a na vicular series is recommended IMPRESSION: 1. Mild degenerative changes at the right radiocarpal joint although no gross evidence of acute frac ture or dislocation seen Report Dictated By: Alyssa Lane MD at 08/14/2017 9:30 AM Report E-Signed By: Alyssa Lane MD at 08/14/2017 9:32 AM WSN:[email or web address]
[2017-08-14 11:22] VITALS: BP 98/73
[2017-08-19] MEDS ORDERED: PER PO (16:50)
[2017-08-19] MEDS ORDERED: CEPH500C24 PO (16:53)
[2017-08-20] MEDS ORDERED: RIVA15TA PO (13:05)
[2017-09-04] MEDS ORDERED: RIVA20TA PO (16:55)
[2017-09-04] MEDS ORDERED: ONDA4TAB PO (23:14)
[2017-09-05] MEDS ORDERED: APIX5TAB PO (13:43)
--- NOTE | 2017-10-13 15:37 | DISCHARGE SUMMARY ---
HISTORY OF PRESENT ILLNESS/HOSPITAL COURSE The patient was admitted to the hospital after finding that she had a femoral neck fracture of her right hip. She underwent ORIF without any difficulty on admission day 2. She did extremely well postop, though she did have pain and nausea. Postop day 1, she was able to sit up at the end of the bed and start decreasing her pain meds. Postop day 2 she was up, moving around with the walker and passing physical therapy with toe touch weightbearing. At this point , we changed her dressing. Her wound was clean, dry and intact. No evidence of any infection. She was neurovascularly intact on the point of her discharge on postop day 2 with only pain meds and her home medications. She was doing extremely well for the type of surgery and her age. DISCHARGE INSTRUCTIONS She is to follow up with Dr. Burns in two weeks postop for staple removal and x-rays. ROMY
--- NOTE | 2017-10-13 15:40 | HISTORY AND PHYSICAL ---
DATE OF ADMISSION: October 13, 2017 HISTORY OF PRESENT ILLNESS Darlene is a very pleasant female who came in. She slipped and fell on the day of admission while going into see a movie. She had significant pain in her right hip, unable to bear weight. An ambulance was called. She was brought to the hospital. She was found to have a femoral neck fracture, nondisplaced in the Emergency Room. PHYSICAL EXAMINATION She has pain with any type of motion of her right lower extremity. She is neurovascularly intact to all sensations. She can move her toes and her ankle up and down, but any type of attempt to move her extremity reproduces pain. She has no open wounds over her hip. She does have some bruising already starting. PAST MEDICAL HISTORY AND PAST SURGICAL HISTORY Will be in the Internal Medicine chart with the ER as well. IMPRESSION Right femoral neck fracture, minimally displaced. PLAN After a long discussion, due to her age and her activity level, I feel that fixation is the appropriate way to do this. She will undergo percutaneous pinning of the femoral neck fracture and realignment. We discussed the risks, benefits, and complications of surgery. I will follow up with her postoperatively. ROMY
== END 2017-08-14 17:20 | disposition home or self-care (01) | DRG 481 ==
LOC: ER 19:08 → OBSVTOIN 20:22 → MED 20:22
PROVIDERS: ADMIT Orthopaedic Surgery; ATTEND Orthopaedic Surgery
PROC: 0QS604Z Reposition Right Upper Femur with Internal Fixation Device, Open Approach (ICD-10-PCS; principal; 2017-08-12 08:09)
DX: S72.011A Unspecified intracapsular fracture of right femur, initial encounter for closed fracture (principal); I47.1 Supraventricular tachycardia; N39.0 Urinary tract infection, site not specified; M48.061 Spinal stenosis, lumbar region without neurogenic claudication; M85.80 Other specified disorders of bone density and structure, unspecified site; J45.909 Unspecified asthma, uncomplicated; S80.812A Abrasion, left lower leg, initial encounter; I95.2 Hypotension due to drugs; B96.20 Unspecified Escherichia coli [E. coli] as the cause of diseases classified elsewhere; K21.9 Gastro-esophageal reflux disease without esophagitis; R55 Syncope and collapse; T40.605A Adverse effect of unspecified narcotics, initial encounter; T41.45XA Adverse effect of unspecified anesthetic, initial encounter; Y92.230 Patient room in hospital as the place of occurrence of the external cause; W00.9XXA Unspecified fall due to ice and snow, initial encounter; Y92.26 Movie house or cinema as the place of occurrence of the external cause; Y99.8 Other external cause status; Z88.0 Allergy status to penicillin; Z88.2 Allergy status to sulfonamides; Z88.8 Allergy status to other drugs, medicaments and biological substances; Z16.23 Resistance to quinolones and fluoroquinolones
CPT/HCPCS: 36415; 70450; 71010; 72125; 76000; 81001; 82040; 82247; 82310; 82374; 82435; 82565; 82947; 84075; 84132; 84155; 84295; 84450; 84460; 84520; 85014; 85018; 85025; 85610; 85730; 86850; 86900; 86901; 87077; 87088; 87186; 93005; 96361; 96374; 96375; 97161; 97165; 99285; J1100; J1170; J1956; J2001; J2250; J2370; J2405; J2704; J2765; J2795; J3010; J3360; J3490; J7030; J7040; J7050

== ENCOUNTER → 2017-12-18 | Outpatient (CLI) | payer OTHER ==
[2017-08-20 09:35] VITALS: BMI 21.0
[~2017-12-18] MED LIST changes: +APIX5TAB PO; +ASPI-764 PO; +CEPH500C24 PO; +ONDA4TAB PO; +PER PO; +RIVA15TA PO; +RIVA20TA PO
--- NOTE | 2017-12-18 15:35 | RADIOLOGY IMAGING REPORT ---
FACILITY: [facility] PATIENT NAME: RELL MONTEZ : [id number] MR: [id number] V: [id number] EXAM DATE: [id number] ORDERING PHYSICIAN: HARRY LIMON TECHNOLOGIST: Susana Barajas PROCEDURE:BILATERAL DIGITAL SCREENING MAMMOGRAM WITH CAD ASSISTED INTERPRETATION & 3D TOMOSYNTHESIS COMPARISON:Prior mammograms INDICATIONS:Screening FINDINGS: Scattered fibroglandular densities are present in both breasts. No masses of suspicious calcifications. DIAGNOSTIC CATEGORY 1--NEGATIVE. RECOMMENDATIONS: ROUTINE MAMMOGRAM AND CLINICAL EVALUATION. IMPRESSION: BIRADS 1: Negative RECOMMENDATIONS: Screening mammography in 1 year. Dictated by: Antoine Bobby M.D. on 12/18/2017 at 13:14 Transcribed by: LOLIS on 12/18/2017 at 13:24 Approved by: Antoine Bobby M.D. on 12/18/2017 at 15:34 [facility]
== END ==
LOC: MAMO 04:22
PROVIDERS: ATTEND Nurse Practitioner Family
DX: Z12.31 Encounter for screening mammogram for malignant neoplasm of breast (principal)
CPT/HCPCS: 77063; 77067

== ENCOUNTER → 2018-01-01 | Outpatient (CLI) | payer OTHER ==
[2017-08-20 09:35] VITALS: BMI 21.0
[~2018-01-01] MED LIST changes: +DIPH0.5D12 IM; +VARI50KI IM
--- NOTE | 2018-01-01 09:51 | RADIOLOGY IMAGING REPORT ---
[place] [facility] [place]: Darlene Miller : 1965 MR: [id number] V: [id number] EXAM DATE: ORDERING PHYSICIAN: HARRY LIMON TECHNOLOGIST: Location: [facility] [place] Patient: Darlene Miller : 1965 Visit/Account:[id number] Date of Sevice: 01/01/2018 DEXA Scan Clinical history: Postmenopausal, right hip fracture. Comparison: DEXA scan from 11/26/2014. LUMBAR SPINE: The bone mineral density (BMD) measured from L1-L4 correlates with a Z-score of 0.1 and a T-score of -0.5 which is Normal as defined by the World Health Organization. The corresponding risk of fracture in the lumbar spine is 1-2 times increased compared with a young adult reference population. This v alue has decreased by 10 % since the prior study. More than 5% change is considered significant. HIP: Bone mineral density (BMD) measured in the LEFT total hip region correlates with a Z-score -1.1 and a T-score of -1.7 which is osteopenia as defined by the World Health Organization. The corresponding risk of fracture in the hip is 3-4 times increased compared to a young adult reference population. Th is value has decreased by 7.8 % since the prior study. More than 5% change is considered significant . T score left femoral neck -1.7 Bone mineral density (BMD) measured in the Femoral Neck region measures 0.804 g/cm?. IMPRESSION: 1. Lumbar spine: Normal. There has been 10% decrease in the bone mineral density since the previous exam. 2. Left Total Hip: Osteopenia. There has been 7.8% decrease in the bone mineral density since the p revious exam. 3. Femoral Neck: Bone Mineral Density is 0.804 g/cm? The next DEXA scan of this patient should include the following sites: L1-L4 and the left hip. FRAX? WHO Fracture Risk Assessment Tool link: <http://www.shef.ac.uk/FRAX/tool.jsp?locationValue=9> PLEASE NOTE: 1) The World Health Organization defines low BMD as follows: T-score Normal > -1 Osteopenia < -1 and > -2.5 Osteoporosis < -2.5 without fractures Established osteoporosis < -2.5 with fractures 2) In general, you may wish to consider: Diagnosis Treatment Follow-up DEXA Normal BMD Prevention 2-3 years Osteopenia Prevention/therapy 1-2 years Osteoporosis Therapy Yearly 3) Fracture risk estimated from the T-score is more accurate for vertebral fractures (often spontane ous) than for hip fractures. Report Dictated By: Alyssa Lane MD at 01/01/2018 9:45 AM Report E-Signed By: Alyssa Lane MD at 01/01/2018 9:46 AM WSN:[id number]
== END ==
LOC: RAD 01:29
PROVIDERS: ATTEND Nurse Practitioner Family
DX: Z12.31 Encounter for screening mammogram for malignant neoplasm of breast (principal); M85.88 Other specified disorders of bone density and structure, other site
CPT/HCPCS: 77080